=== PATIENT | male | born 1955 | race Native Hawaiian/Other Pacific Islander ===

== ENCOUNTER 2018-12-25 09:25 | Outpatient (CLI) | payer BC | END 2018-12-25 23:43 | disposition home or self-care (01) | LOC: MRI 09:25 | DX: M54.12 Radiculopathy, cervical region (principal) ==

== ENCOUNTER 2019-02-13 09:33 | Outpatient (CLI) | payer BC | END 2019-02-13 20:09 | disposition home or self-care (01) | LOC: LABW 09:33 | DX: Z79.02 Long term (current) use of antithrombotics/antiplatelets (principal) | CPT/HCPCS: 85002 ==

== ENCOUNTER 2021-11-01 09:59 | Outpatient (CLI) | payer OTHER, MEDICARE | END 2021-11-01 19:00 | disposition home or self-care (01) | LOC: MRI 09:59 | PROVIDERS: ATTEND Orthopaedic Surgery | DX: M51.36 Other intervertebral disc degeneration, lumbar region (principal) ==

== ENCOUNTER 2022-09-09 20:48 | Emergency (ER) | payer OTHER, MEDICARE ==
[~2022-09-09] VITALS: Ht 182.9 cm; Wt 129.3 kg
[2022-09-09 20:50] VITALS: TEMP 98.9
[2022-09-09] MEDS ORDERED: ALLO300T23 PO (21:21)
[2022-09-09] MEDS ORDERED: CETIRIZINE HYDR10 MG PO (21:22)
[2022-09-09] MEDS ORDERED: CELECOXIB200 MG PO (21:22)
[2022-09-09] MEDS ORDERED: CADUET10 MG/10 M PO (21:22)
[2022-09-09] MEDS ORDERED: FLUTICASON50 MCG/AC1 NAS (21:23)
[2022-09-09] MEDS ORDERED: HYDR25TA60 PO (21:23)
[2022-09-09] MEDS ORDERED: EUTHYROX88 MCG PO (21:23)
[2022-09-09] MEDS ORDERED: OLMESARTAN MEDO40 MG PO (21:23)
[2022-09-09 22:26] VITALS: BP 148/69
== END 2022-09-09 22:37 | disposition home or self-care (01) ==
LOC: ED 20:48
DX: S00.03XA Contusion of scalp, initial encounter (principal); W20.8XXA Other cause of strike by thrown, projected or falling object, initial encounter; Y92.096 Garden or yard of other non-institutional residence as the place of occurrence of the external cause
CPT/HCPCS: 99283